=== PATIENT | male | born 1990 | race African-American/Black ===

== ENCOUNTER 2020-07-11 20:26 | Emergency (ER) | payer BC ==
[2020-07-11] MEDS ORDERED: Rabies Vaccine Human 2.5 UNITS VIAL ONE (21:05)
[2020-07-11] MEDS ORDERED: Nitroglycerin 0.4 MG TAB 1 EACH ONE (23:27)
== END 2020-07-11 22:57 | disposition home or self-care (01) ==
LOC: CSHERS 20:26
DX: S40.212A Abrasion of left shoulder, initial encounter (principal); S60.415A Abrasion of left ring finger, initial encounter; S60.417A Abrasion of left little finger, initial encounter; S60.511A Abrasion of right hand, initial encounter; Z23 Encounter for immunization
CPT/HCPCS: 90471; 90675; 96372

== ENCOUNTER → 2020-07-14 | Day surgery (SDC) | payer BC ==
[~2020-07-14] MED LIST: Rabies Vaccine Human 2.5 UNITS VIAL ONE
== END ==
LOC: CSHER/OP 20:00
PROVIDERS: ATTEND Emergency Medicine
DX: Z29.14 Encounter for prophylactic rabies immune globulin (principal)
CPT/HCPCS: 90471; 90675

== ENCOUNTER → 2020-07-19 | Day surgery (SDC) | payer BC | LOC: CSHER/OP 21:18 | PROVIDERS: ATTEND Emergency Medicine | DX: Z29.14 Encounter for prophylactic rabies immune globulin (principal); Z21 Asymptomatic human immunodeficiency virus [HIV] infection status | CPT/HCPCS: 90471; 90675 ==

== ENCOUNTER → 2020-08-01 | Day surgery (SDC) | payer BC | LOC: CJX 21:44 | PROVIDERS: ATTEND Emergency Medicine | DX: Z29.14 Encounter for prophylactic rabies immune globulin (principal) | CPT/HCPCS: 90471 ==